=== PATIENT | female | born 1960 | race Caucasian/White ===

== ENCOUNTER 2018-07-29 11:26 | Inpatient (IN) | payer OTHER ==
[~2018-07-29 11:26] MED LIST: ISOVUE-370 76%-LOCM 1 ML ONE
[2018-07-29] MEDS ORDERED: Fentanyl 100 MCG/2 ML VIAL SLOW IVP PRN (14:59)
[2018-07-29] MEDS ORDERED: Sodium Chloride 0.9% 1,000 ML IV SCH (15:00)
[2018-07-29] MEDS ORDERED: Promethazine HCl 25 MG in Sodium Chloride 0.9% 50 ML IVPB PRN (15:05)
[2018-07-29] MEDS ORDERED: Promethazine HCl 12.5 MG in Sodium Chloride 0.9% 50 ML IVPB PRN (15:45)
[2018-07-29 16:19] LABS: Bilirubin Small (Negative); Blood, Urine Negative (Negative); Clarity CLOUDY (Clear); Glucose, Urine (Dipstick) Negative (Negative); Leukocyte Negative (Negative); Nitrite Negative (Negative); Protein, Urine (Dipstick) Trace mg/dL (Neg-Trace); Specific Gravity, Urine 1.025 (1.002-1.036); Urobilinogen 0.2 mg/dL (0.2-1.0); pH, Urine 5.5 (5.0-9.0)
[2018-07-29 16:20] LABS: Bacteria/HPF 1+ HPF (None Seen); RBC/HPF 0-3 HPF (0-3)
[2018-07-29 16:22] VITALS: BMI 34.9
[2018-07-29 16:24] LABS: Hyaline Casts/LPF 0-3 HYALINE CAST LPF (0-3 Hyaline); Renal Epithelial None Seen HPF (0-3); Transitional Epithelial NONE SEEN HPF (0-3)
[2018-07-29] MEDS: Fentanyl 100 MCG/2 ML VIAL SLOW IVP PRN ×2 (16:24→20:37)
[2018-07-29 16:43] LABS: ALT (SGPT) 16 U/L (8-55); AST (SGOT) 22 U/L (5-34); Albumin 3.8 g/dL (3.5-5.0); Alkaline Phosphatase 78 U/L (40-150); Anion Gap 13 mmol/L (10-20); BUN (Urea Nitrogen) 8 mg/dL (9.8-20.1); Bilirubin, Total 0.3 mg/dL (0.2-1.2); Calc. Creatinine Clearance 111 mL/min (70-130); Calcium 8.7 mg/dL (7.8-10.44); Carbon Dioxide 22 mmol/L (22-29); Chloride 107 mmol/L (98-107); Estimated GFR-MDRD 70; Globulin 2.3 g/dL (2.4-3.5); Glucose 76 mg/dL (70-105); Lipase 7 U/L (8-78); Potassium 3.3 mmol/L (3.5-5.1); Protein, Total 6.1 g/dL (6.0-8.3); Sodium 139 mmol/L (136-145)
[2018-07-29 16:44] LABS: #Eosinphils 0.1 thou/uL (0.0-0.7); #Lymphocytes 1.6 thou/uL (1.20-3.40); #Monocytes 0.5 thou/uL (0.11-0.59); %Basophils 0.4 % (0.0-1.0); %Eosinophils 1.7 % (0.0-10.0); %Lymphocytes 25.4 % (21.0-51.0); %Monocytes 7.9 % (0.0-10.0); %Neutrophils 64.6 % (42.0-75.0); Anisocytosis SLIGHT = 6-15 cells (100X) (0-5/hpf); Hemoglobin 9.7 g/dL (12.0-16.0); Hypochromia SLIGHT = 6-15 cells (100X) (0-5/hpf); MDiff Complete? YES; Mean Corpuscular HGB CONC 31.6 g/dL (32.0-36.0); Mean Corpuscular Hemoglobin 23.3 pg (27.0-31.0); Mean Corpuscular Volume 73.7 fL (78.0-98.0); Microcytosis SLIGHT = 6-15 cells (100X) (0-5/hpf); Platelet Count 389 thou/uL (130-400); Platelet Morphology Comment Appears Adequate; Poikilocytosis SLIGHT = 6-15 cells (100X) (0-5/hpf); RBC Distribution Width 15.9 % (11.5-14.5); Red Blood Cell (RBC) Count 4.18 mill/uL (4.20-5.40); White Blood Cell (WBC) Count 6.2 thou/uL (4.8-10.8)
--- NOTE | 2018-07-29 16:56 | CT ---
CT abdomen without and with IV contrast HISTORY: Pancreatitis. COMPARISON: 08/10/2015. FINDINGS: The lung bases are clear. Gallbladder is surgically absent. Pancreas has a normal appearanc e. Calcified granulomata of the spleen are consistent with healed granulomatous disease. No evidence of bowel obstruction. The inferior most images show a dilated fluid of gas and fluid-filled small bowel on all 3 sequences. The adjacent bowel is decompressed. This is of doubtful clinical significance. The pelvis was not imaged. IMPRESSION: Status post cholecystectomy. No evidence of pancreatitis.
[2018-07-30] MEDS: Sodium Chloride 0.9% 1,000 ML IV SCH ×3 (01:28→17:55)
[2018-07-30 06:04] LABS: #Eosinphils 0.1 thou/uL (0.0-0.7); #Lymphocytes 1.3 thou/uL (1.20-3.40); #Monocytes 0.4 thou/uL (0.11-0.59); #Neutrophils 2.9 thou/uL (1.40-6.50); %Basophils 0.9 % (0.0-1.0); %Eosinophils 2.6 % (0.0-10.0); %Lymphocytes 27.1 % (21.0-51.0); %Monocytes 8.1 % (0.0-10.0); %Neutrophils 61.4 % (42.0-75.0); Hemoglobin 8.8 g/dL (12.0-16.0); Mean Corpuscular HGB CONC 31.1 g/dL (32.0-36.0); Mean Corpuscular Volume 73.9 fL (78.0-98.0); Mean Platelet Volume 7.9 fL (7.4-10.4); Platelet Count 345 thou/uL (130-400); RBC Distribution Width 15.9 % (11.5-14.5); Red Blood Cell (RBC) Count 3.84 mill/uL (4.20-5.40); White Blood Cell (WBC) Count 4.8 thou/uL (4.8-10.8)
[2018-07-30] MEDS: Fentanyl 100 MCG/2 ML VIAL SLOW IVP PRN ×3 (06:07→17:50)
--- NOTE | 2018-07-30 09:16 | HP ---
HISTORY OF PRESENT ILLNESS: She is a 58-year-old female. The patient presented today with epigastric pain; region, diffusely across the abdomen. She reports the pain started this weekend with symptoms of nausea, vomiting, and diarrhea. The patient has a history of pancreatitis attack in the past. Last one was in 2015. She reports she has not eaten anything since Sunday , tried to keep herself outpatient by just doing p.o. fluid intake with water and unfortunately, felt that she denied any triggers to the pancreatitis. Reports the passing of her daughter was at the end of June, which reports this could have been a trigger for her. She also complains of body aches, fatigue, and fever. She did respond slightly with Zofran, but otherwise failed outpatient treatment. PAST MEDICAL HISTORY: Includes depression that was treated with Prozac and has not been on any medications in over a year and a half, also has a history of acid reflux. She is currently on Protonix 40 mg daily for that and is on estradiol 1 mg oral tablet daily. PAST SURGICAL HISTORY: Includes gallbladder removal as well as tonsils removed. SOCIAL HISTORY: Includes smoking e-cigarettes daily. Denies any alcohol. HOME MEDICATIONS: She currently takes 40 mg of Protonix daily as well as an estradiol 1 mg oral tablet every day. REVIEW OF SYSTEMS: Includes, CONSTITUTIONAL: Generalized body aches, fatigue, and fever. HEENT: Denies any complaints. Denies any neck pain. RESPIRATIONS: Denies any cough, shortness of breath. CARDIOVASCULAR: Denies any palpitations, chest pain, or sweating. GI: Reports abdominal pain, 8/10, epigastric region with nausea, vomiting, and diarrhea with failed outpatient treatment therapy with Zofran and n.p.o. : Denies any urinary complaints. MUSCULOSKELETAL: Denies any gait disturbances, faint numbness, or tingling. NEUROLOGIC: Alert and oriented x4. PSYCHIATRIC: Denies any anxiety or depression. PHYSICAL EXAMINATION: VITAL SIGNS: Include height is 65 inches. Weight is 210 pounds. BMI was 34.95. Blood pressure 140/86, temperature 98.8, pulse is 73, oxygen saturation is 97% on room air, and respiratory rate was 20. Pain at 9/10 to the abdomen. GENERAL: She had just facial grimacing. Well dressed. She appeared in pain. HEENT: PERRLA bilaterally. TMs are clear. No sore throat. Pharynx is normal. NECK: Supple. No lymphadenopathy noted. RESPIRATIONS: Lungs are clear bilaterally. CARDIOVASCULAR: Normal S1, S2. No murmurs. Rhythm was regular. EXTREMITIES: Well perfused. ABDOMEN: Positive bowel sounds. Diffusely tender, increasing tenderness to the upper quadrants. MENTAL STATUS: She was alert and oriented x4. She demonstrated good judgment. Cranial nerves were intact. ASSESSMENT: The patient is being admitted for pancreatitis. PLAN: We are going to direct admit to [facility] for a medical bed. We are going to provide pain relief and medication for nausea and IV fluids. The patient is going to be kept n.p.o., and we will do serial re-evaluation. This is dictated by DANTE Burrows, for Dr. Guy Topete. Job ID: [id number] [id number]
[2018-07-30] MEDS: Estradiol 1 MG TAB PO SCH (09:38)
[2018-07-30] MEDS: Pantoprazole 40 MG VIAL IVP SCH ×2 (09:38→20:29)
[2018-07-30] MEDS: Sucralfate 1 GM TAB PO SCH ×4 (09:39→20:31)
[2018-07-31] MEDS: Sodium Chloride 0.9% 1,000 ML IV SCH ×3 (02:00→18:49)
[2018-07-31 06:47] LABS: ALT (SGPT) 17 U/L (8-55); AST (SGOT) 23 U/L (5-34); Albumin 3.6 g/dL (3.5-5.0); Alkaline Phosphatase 73 U/L (40-150); Anion Gap 11 mmol/L (10-20); BUN (Urea Nitrogen) Less than 4 mg/dL (9.8-20.1); Bilirubin, Total 0.3 mg/dL (0.2-1.2); Calc. Creatinine Clearance 123 mL/min (70-130); Calcium 8.5 mg/dL (7.8-10.44); Carbon Dioxide 24 mmol/L (22-29); Chloride 112 mmol/L (98-107); Estimated GFR-MDRD 78; Globulin 2.3 g/dL (2.4-3.5); Glucose 84 mg/dL (70-105); Potassium 3.5 mmol/L (3.5-5.1); Protein, Total 5.9 g/dL (6.0-8.3); Sodium 143 mmol/L (136-145)
[2018-07-31] MEDS: Estradiol 1 MG TAB PO SCH (09:03)
[2018-07-31] MEDS: Pantoprazole 40 MG VIAL IVP SCH ×2 (09:03→21:11)
[2018-07-31] MEDS: Sucralfate 1 GM TAB PO SCH ×4 (09:03→21:09)
--- NOTE | 2018-07-31 12:38 | CON ---
DATE OF CONSULTATION: 07/31/2018 REASON FOR CONSULTATION: Abdominal pain and heme-positive stool. HISTORY OF PRESENT ILLNESS: Chuck Menendez is a 58-year-old woman, whom I have met previously back in 2015. She presented with pancreatitis and elevated LFTs. She underwent cholecystectomy at that time. She had normal common bile duct imaging at that time. LFTs trended down nicely. She had recurrent pancreatitis through 2016. 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 We sent her to Dr. Dillon Gage in [place] and in July 2016, he performed ERCP with biliary and pancreatic sphincterotomy and pancreatic duct stent placement. Since then, she has had no further episodes of pancreatitis and no chronic gastrointestinal symptoms. I saw the patient again last year in April 2017 for evaluation of mild iron deficiency anemia. Hemoglobin was at 11.3, ferritin 9.63, and MCV 81.3 at that time. I recommended EGD and colonoscopy for further investigation. The patient declined EGD, but we did perform colonoscopy on 05/03/2017, she had a 2 mm sigmoid colon polyp removed, which was an adenoma as well as sigmoid diverticulosis. I recommended repeating colonoscopy at a 5-year interval and again consideration of EGD, particularly if her iron deficiency anemia persisted. The patient tells me that she continues on Protonix 40 mg daily, which does well at controlling chronic reflux symptoms. She does not take NSAIDs. She has not really been taking any oral iron. She says about 4 to 5 days ago, she started having acute onset of epigastric pain, nausea, and diarrhea after eating a water burger. This progressed over the weekend and she thought she might be having an attack of recurrent pancreatitis. The diarrhea has been nonbloody with no melena or hematochezia. She was admitted to the hospital yesterday for further evaluation. Today, she has continued to have some loose stools. No vomiting. Her abdominal discomfort is a little better. She has been on a clear liquid diet. Notably, LFTs and lipase have all been normal, but CBC shows that she has worsening microcytic anemia with hemoglobin down to 8.8 and MCV 73.9. FOBT was performed and this is positive. A CT scan showed no evidence of pancreatic inflammation. REVIEW OF SYSTEMS: Full review of systems including constitutional, head, eyes, ears, nose, throat, GI, , cardiovascular, respiratory, musculoskeletal, and neurologic systems are negative except as noted in the HPI. PAST MEDICAL HISTORY: 1. 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 Recurrent pancreatitis, no episodes since 2016. 2. GERD. 3. Depression. 4. Iron deficiency anemia. 5. Colon polyp, tubular adenoma, removed in April 2017. 6. Diverticulosis of the sigmoid colon. OUTPATIENT MEDICATIONS: 1. Protonix 40 mg daily. 2. Estradiol 1 mg daily. ALLERGIES: NO KNOWN DRUG ALLERGIES. FAMILY HISTORY: Noncontributory. SOCIAL HISTORY: She uses E cigarettes. No alcohol use. PHYSICAL EXAMINATION: VITAL SIGNS: Temperature 98.3, pulse 76, blood pressure 146/82, and 94% oxygen saturation on room air. GENERAL: No acute distress, sitting up in bed comfortably. SKIN: No jaundice. No rashes were palpable. EYES: No scleral icterus. Extraocular movements intact. ENT: Mucous membranes moist. No oral lesions. LYMPH: No submandibular or supraclavicular lymphadenopathy. Thyroid nontender to palpation. MENTAL: She is alert and fully oriented, pleasant, conversational, can give a detailed coherent history. HEART: Regular rate and rhythm. LUNGS: Clear to auscultation bilaterally. ABDOMEN: Bowel sounds are present. Soft. Mild tenderness to palpation in the epigastrium, but no guarding or rebound tenderness. EXTREMITIES: No peripheral edema. VESSELS: Radial pulses 2+ bilaterally. NEURO: Cranial nerves 2 through 12 intact bilaterally. No focal deficits. LABORATORY STUDIES: Hemoglobin 8.8, MCV 73.9, WBC 4.8, and platelets 345. Sodium 143, potassium 3.5, BUN less than 4, creatinine 0.76, and lipase 11. LFTs all normal with total bilirubin 0.3, alkaline phosphatase 73, AST 23, ALT 17, and albumin 3.6. FOBT is positive. Urinalysis shows 4 to 6 wbc's. IMAGING STUDIES: CT of the abdomen with contrast showed normal-appearing pancreas. The gallbladder is surgically absent. Otherwise, unremarkable scan. ASSESSMENT AND PLAN: 1. Epigastric pain. 2. Acute diarrhea, nonbloody. 3. Chronic iron deficiency anemia. 4. Heme-positive stool. I suspect her worsening microcytic anemia is probably not directly related to her acute symptoms over the past few days. It is certainly possible the patient might have gastritis or peptic ulcer disease underlying some of her symptoms, but note she is already on chronic acid suppression with Protonix. That being said, given her symptoms, as well as the iron deficiency anemia, upper endoscopy is certainly warranted, and we will plan to get this done tomorrow. I think it is more likely the patient is experiencing an acute infectious gastroenteritis, which will just need to run its course. The patient had a colonoscopy last year and this does not need to be repeated at this time. After hospital discharge, the patient does need to be put on oral iron supplementation for her iron deficiency anemia. Plan for esophagogastroduodenoscopy tomorrow. Further recommendations following esophagogastroduodenoscopy. Job ID: [id number]
[2018-08-01] MEDS: Sodium Chloride 0.9% 1,000 ML IV SCH (02:56)
[2018-08-01 06:22] LABS: #Basophils 0.1 thou/uL (0.0-0.2); #Eosinphils 0.1 thou/uL (0.0-0.7); #Lymphocytes 1.4 thou/uL (1.20-3.40); #Monocytes 0.6 thou/uL (0.11-0.59); #Neutrophils 3.3 thou/uL (1.40-6.50); %Basophils 0.9 % (0.0-1.0); %Eosinophils 2.6 % (0.0-10.0); %Lymphocytes 25.9 % (21.0-51.0); %Monocytes 10.1 % (0.0-10.0); %Neutrophils 60.5 % (42.0-75.0); Hemoglobin 8.7 g/dL (12.0-16.0); Mean Corpuscular Hemoglobin 23.5 pg (27.0-31.0); Mean Corpuscular Volume 73.6 fL (78.0-98.0); Platelet Count 373 thou/uL (130-400); White Blood Cell (WBC) Count 5.5 thou/uL (4.8-10.8)
[2018-08-01] MEDS: Sucralfate 1 GM TAB PO SCH (11:39)
[2018-08-01] MEDS: Pantoprazole 40 MG VIAL IVP SCH (11:40)
[2018-08-01] MEDS: Estradiol 1 MG TAB PO SCH (11:40)
[2018-08-01 12:04] VITALS: BP 150/80; TEMP 97.6
--- NOTE | 2018-08-01 16:26 | OP ---
DATE OF PROCEDURE: 08/01/2018 PROCEDURE PERFORMED: Esophagogastroduodenoscopy with biopsy. INDICATIONS FOR PROCEDURE: Midepigastric abdominal pain, iron deficiency anemia. DESCRIPTION OF PROCEDURE: After the risks and benefits of the procedure were explained to the patient including risks of bleeding, infection, perforation, reactions to anesthesia, aspiration, and/or pain, informed consent was obtained. The patient was then taken to the endoscopy suite, where deep sedation was administered via propofol and anesthesia support. Once adequate sedation was achieved, the standard gastroscope was introduced into the mouth with intubation of the esophagus, stomach, and the proximal small intestines with the findings listed below. The patient tolerated the procedure well with no immediate perioperative complications. Upon conclusion of the procedure, all equipment was removed from the patient and she was transferred to PACU in satisfactory condition. FINDINGS: Esophagus: Normal-appearing mucosa was seen in the proximal, mid, and distal esophagus. There was no evidence of erosions, ulcerations, mass lesions, or active/recent bleeding. Stomach: Normal-appearing mucosa was seen in the gastric cardia, fundus, body, greater curvature, antrum, and incisura. There was no evidence of erosions, ulcerations, mass lesions, or active/recent bleeding. Duodenum: Normal-appearing mucosa was seen in both the duodenal bulb and second portion of the duodenum. There was no evidence of erosions, ulcerations, mass lesions, or active/recent bleeding. Random duodenal biopsies were taken for evaluation for celiac sprue. IMPRESSION: Normal upper endoscopy. RECOMMENDATIONS: 1. While inpatient, we will continue to trend hemoglobin and hematocrit and transfuse as necessary to maintain hemoglobin and hematocrit of 7/21. 2. Continue to monitor clinically for signs of active GI bleeding. 3. Pain control per Primary Team. 4. We would continue the patient on PPI b.i.d. as part of her midepigastric abdominal pain. 5. We would advance her diet as tolerated. 6. On discharge, the patient will need to be placed on oral iron supplementation for her iron deficiency anemia and follow up in the GI Clinic. With the improvement of the patient's abdominal pain, we will sign off at this time. If her pain continues to improve, you can discharge the patient to follow up in the GI Clinic as an outpatient within 2 to 3 weeks. Please call with any questions. Job ID: [id number]
--- NOTE | 2018-08-02 21:08 | EKG ---
Test Reason : Blood Pressure : / mmHG Vent. Rate : 068 BPM Atrial Rate : 068 BPM P-R Int : 186 ms QRS Dur : 076 ms QT Int : 396 ms P-R-T Axes : 052 000 007 degrees QTc Int : 421 ms Normal sinus rhythm Cannot rule out Anterior infarct , age undetermined Abnormal ECG When compared with ECG of 01-AUG-1996 12:58, No significant change was found Confirmed by Daniel LYNN ([id number]) on 08/02/2018 9:08:35 PM Referred By: MODESTA Confirmed By:Daniel LYNN
== END 2018-08-01 13:00 | disposition home or self-care (01) | DRG 392 ==
LOC: 2SE 11:26 → T4-A 13:14
PROVIDERS: ADMIT Specialist; ATTEND Specialist
PROC: 0DB98ZX Excision of Duodenum, Via Natural or Artificial Opening Endoscopic, Diagnostic (ICD-10-PCS; principal; 2018-08-01)
DX: K52.9 Noninfective gastroenteritis and colitis, unspecified (principal); D50.9 Iron deficiency anemia, unspecified; K21.9 Gastro-esophageal reflux disease without esophagitis; F32.9 Major depressive disorder, single episode, unspecified; F17.290 Nicotine dependence, other tobacco product, uncomplicated; Z98.890 Other specified postprocedural states; Z90.49 Acquired absence of other specified parts of digestive tract; Z79.899 Other long term (current) drug therapy
CPT/HCPCS: 36415; 74170; 80053; 81001; 82150; 82274; 83690; 85025; 85730; 87338; 88305; 93005; 93010; C9113; J2550; J3010; Q9966

== ENCOUNTER 2020-03-26 08:13 | Day surgery (SDC) | payer BC ==
[2020-03-26 11:07] VITALS: TEMP 98
[2020-03-26 14:03] VITALS: BP 169/97
== END 2020-03-26 14:04 | disposition home or self-care (01) ==
LOC: ONC/OP 08:13
PROVIDERS: ATTEND Specialist
PROC: 30233N1 Transfusion of Nonautologous Red Blood Cells into Peripheral Vein, Percutaneous Approach (ICD-10-PCS; principal; 2020-03-26)
DX: D64.9 Anemia, unspecified (principal); R06.00 Dyspnea, unspecified; R53.83 Other fatigue
CPT/HCPCS: 36415; 36430; 82728; 83550; 86850; 86900; 86901; P9016

== ENCOUNTER 2020-05-26 07:55 | Outpatient (CLI) | payer BC ==
[2020-05-26] MEDS ORDERED: Iopamidol 370 76% 100 ML VIAL ONE (12:06)
== END 2020-05-26 07:56 | disposition home or self-care (01) ==
LOC: CT 07:55
PROVIDERS: ATTEND Internal Medicine
DX: D49.0 Neoplasm of unspecified behavior of digestive system (principal); K63.89 Other specified diseases of intestine
CPT/HCPCS: 74178; Q9967

== ENCOUNTER 2020-06-03 09:19 | Outpatient (CLI) | payer BC ==
[2020-06-03 12:33] LABS: #Basophils 0.1 10x3/uL (0.0-0.2); #Eosinphils 0.2 10x3/uL (0.0-0.5); #Monocytes 0.5 10x3/uL (0.0-1.1); #Neutrophils 4.4 10x3/uL (1.5-8.4); %Eosinophils 2.5 % (0.0-6.0); %Lymphocytes 13.4 % (18.0-47.0); %Monocytes 8.1 % (0.0-10.0); %Neutrophils 74.5 % (40.0-75.0); Hemoglobin 11.8 g/dL (12.0-15.5); Mean Corpuscular HGB CONC 30.4 g/dL (32.0-36.0); Mean Platelet Volume 10.3 fl (7.4-10.4); Platelet Count 362 10x3/uL (150-450); RBC Distribution Width 29.2 % (11.5-14.5); Red Blood Cell (RBC) Count 4.91 10x6/uL (3.90-5.03)
[2020-06-03 12:51] LABS: Anion Gap 18 mmol/L (10-20); BUN (Urea Nitrogen) 7 mg/dL (9.8-20.1); Calc. Creatinine Clearance 0 mL/min (70-130); Calcium 9.7 mg/dL (7.8-10.44); Carbon Dioxide 21 mmol/L (22-29); Chloride 107 mmol/L (98-107); Glucose 89 mg/dL (70-105); Potassium 4.5 mmol/L (3.5-5.1); Sodium 141 mmol/L (136-145)
[2020-06-03 13:03] LABS: Platelet Morphology Comment Appears Adequate
[2020-06-03 13:05] LABS: Anisocytosis SLIGHT = 6-15 cells (100X) (0-5/hpf)
[2020-06-03 17:53] LABS: SARS-CoV-2 PCR by NAA Not Detected (NotDetected)
== END 2020-06-03 09:20 | disposition home or self-care (01) ==
LOC: LABBT 09:19
PROVIDERS: ATTEND Surgery
DX: Z01.812 Encounter for preprocedural laboratory examination (principal); K63.89 Other specified diseases of intestine; Z20.822 Contact with and (suspected) exposure to COVID-19
CPT/HCPCS: 80048; 85025; 87635; U0003; U0005

== ENCOUNTER 2020-06-08 07:49 | Day surgery (SDC) | payer BC ==
[2020-06-04 15:43] VITALS: BMI 36.6
[2020-06-08] MEDS ORDERED: cefOXitin Sodium/Dextrose 2 GM/50 ML BAG ONE (08:24)
[2020-06-08] MEDS ORDERED: Midazolam HCl 2 mg/2 ml Vial ONE ×2 (10:10→10:44)
[2020-06-08] MEDS ORDERED: Fentanyl 100 MCG/2 ML VIAL ONE ×5 (10:10→17:50)
[2020-06-08] MEDS ORDERED: Dexamethasone 4 mg/ml Vial ONE (10:11)
[2020-06-08] MEDS ORDERED: Ketorolac Tromethamine 30 MG/ML VIAL ONE (10:26)
[2020-06-08] MEDS ORDERED: Glycopyrrolate 0.2 MG/ML 5 ML SYRINGE ONE (10:26)
[2020-06-08] MEDS ORDERED: Dexamethasone 20 MG/5 ML VIAL ONE ×2 (10:26)
[2020-06-08] MEDS ORDERED: Ondansetron PF 4 MG/2 ML Vial ONE (10:26)
[2020-06-08] MEDS ORDERED: Bupivacaine HCl 0.5%/Epinephrine 1:200,000/PF 30 ml Vial ONE (10:26)
[2020-06-08] MEDS ORDERED: Rocuronium Bromide 10 MG/ML (10ML VIAL) ONE (10:26)
[2020-06-08] MEDS ORDERED: PROPOFOL 200 MG/20 ML VIAL ONE (10:26)
[2020-06-08] MEDS ORDERED: Lidocaine 1% PF 5 ML VIAL ONE (10:26)
[2020-06-08] MEDS ORDERED: Fentanyl 100 MCG/2 ML VIAL SLOW IVP PRN ×2 (13:42)
[2020-06-08] MEDS ORDERED: Dextrose 5% in Water 1,000 ML IV PRN (13:42)
[2020-06-08] MEDS ORDERED: Promethazine HCl 25 MG/ML VIAL IM PRN (13:42)
[2020-06-08] MEDS ORDERED: Dextrose 50% Abboject 50 ML SYRINGE SLOW IVP PRN (13:42)
[2020-06-08] MEDS ORDERED: ALPRAZolam 0.25 MG TAB PO PRN (13:42)
[2020-06-08] MEDS ORDERED: hydrALAZINE 20 MG/ML VIAL SLOW IVP PRN (13:42)
[2020-06-08] MEDS ORDERED: Ondansetron PF 4 MG/2 ML Vial IVP PRN (13:42)
[2020-06-08] MEDS ORDERED: D5 1/2 NS w/20 mEq KCL 1,000 ML ONE (14:44)
[2020-06-08] MEDS: D5 1/2 NS w/20 mEq KCL 1,000 ML IV SCH (19:25)
[2020-06-08] MEDS: Famotidine 20 MG TAB PO SCH (19:26)
[2020-06-08] MEDS: Famotidine/PF 20 mg/2ml Vial SLOW IVP SCH (19:26)
[2020-06-08] MEDS: HYDROcodone/Acetaminophen 7.5/325 mg Tablet PO PRN (19:32)
[2020-06-08] MEDS ORDERED: Enoxaparin Sodium 40 MG/0.4 ML SYRINGE SC SCH (21:00)
[2020-06-09 06:05] LABS: #Lymphocytes 0.7 thou/uL (1.20-3.40); #Monocytes 0.7 thou/uL (0.11-0.59); #Neutrophils 14.4 thou/uL (1.40-6.50); %Eosinophils 0.1 % (0.0-10.0); %Lymphocytes 4.6 % (21.0-51.0); %Monocytes 4.6 % (0.0-10.0); %Neutrophils 90.7 % (42.0-75.0); Hemoglobin 11.2 g/dL (12.0-16.0); Mean Corpuscular HGB CONC 31.1 g/dL (32.0-36.0); Mean Corpuscular Hemoglobin 25.6 pg (27.0-31.0); Mean Corpuscular Volume 82.3 fL (78.0-98.0); Mean Platelet Volume 11.2 fL (7.4-10.4); Platelet Count 278 thou/uL (130-400); RBC Distribution Width 25.3 % (11.5-14.5); White Blood Cell (WBC) Count 15.8 thou/uL (4.8-10.8)
[2020-06-09 06:09] LABS: Anion Gap 14 mmol/L (10-20); BUN (Urea Nitrogen) 6 mg/dL (9.8-20.1); Calc. Creatinine Clearance 126 mL/min (70-130); Calcium 8.8 mg/dL (7.8-10.44); Carbon Dioxide 20 mmol/L (22-29); Chloride 107 mmol/L (98-107); Glucose 144 mg/dL (70-105); Potassium 4.2 mmol/L (3.5-5.1); Sodium 137 mmol/L (136-145)
[2020-06-09] MEDS: D5 1/2 NS w/20 mEq KCL 1,000 ML IV SCH (06:14)
[2020-06-09] MEDS: Famotidine/PF 20 mg/2ml Vial SLOW IVP SCH (08:24)
[2020-06-09] MEDS: Famotidine 20 MG TAB PO SCH (08:24)
[2020-06-09] MEDS: HYDROcodone/Acetaminophen 7.5/325 mg Tablet PO PRN (08:28)
[2020-06-09] MEDS ORDERED: Fluticasone Propionate Nasal Spray 16 gm Bottle NASAL SCH (09:00)
[2020-06-09 11:53] VITALS: BP 101/66; TEMP 98.2
== END 2020-06-09 15:05 | disposition home or self-care (01) ==
LOC: SDC 07:49 → SJJU 13:42 → SDC 06-09 15:05
PROVIDERS: ATTEND Surgery
PROC: 0DBA0ZZ Excision of Jejunum, Open Approach (ICD-10-PCS; principal; 2020-06-08)
PROC: 0WJG4ZZ Inspection of Peritoneal Cavity, Percutaneous Endoscopic Approach (ICD-10-PCS; principal; 2020-06-08)
DX: K63.89 Other specified diseases of intestine (principal); K56.1 Intussusception; Z79.899 Other long term (current) drug therapy
CPT/HCPCS: 36415; 80048; 85025; 88307; J0694; J1100; J1650; J1885; J2250; J2405; J2704; J3010; J3480

== ENCOUNTER 2022-01-05 09:40 | Outpatient (CLI) | payer BC | END 2022-01-05 09:41 | disposition home or self-care (01) | LOC: BICMAMMO 09:40 | PROVIDERS: ATTEND Specialist | DX: Z12.31 Encounter for screening mammogram for malignant neoplasm of breast (principal); M85.852 Other specified disorders of bone density and structure, left thigh; N64.89 Other specified disorders of breast; Z91.89 Other specified personal risk factors, not elsewhere classified; Z80.3 Family history of malignant neoplasm of breast | CPT/HCPCS: 77063; 77067; 77080 ==

== ENCOUNTER 2022-04-24 09:59 | Outpatient (CLI) | payer BC | END 2022-04-24 10:00 | disposition home or self-care (01) | LOC: BICMAMMO 09:59 | PROVIDERS: ATTEND Specialist | DX: N64.89 Other specified disorders of breast (principal) | CPT/HCPCS: G0279 ==